=== PATIENT | female | born 1985 | race Caucasian/White ===

== ENCOUNTER 2021-09-27 15:09 | Emergency (ER) | payer OTHER, MEDICAID ==
[2021-09-27] MEDS ORDERED: Acetaminophen 500 MG Tab PO ONE (16:46)
[2021-09-27] MEDS ORDERED: Take Home: Acetaminophen/HYDROcodone 325-5 MG, 5 Tab Pack PO ONE (18:40)
[2021-09-27] MEDS ORDERED: Diphtheria,Pertussis(Acell),Tetanus Vaccine 0.5 ML Syringe IM ONE (18:53)
[2021-09-27] MEDS ORDERED: Take Home: traMADol 50 MG, 4 Tab Pack PO ONE (18:55)
== END 2021-09-27 19:20 | disposition home or self-care (01) ==
LOC: VM.ED 15:09
DX: S06.0X9A Concussion with loss of consciousness of unspecified duration, initial encounter (principal); S22.42XA Multiple fractures of ribs, left side, initial encounter for closed fracture; I10 Essential (primary) hypertension; E66.9 Obesity, unspecified; Z68.30 Body mass index [BMI] 30.0-30.9, adult; Z90.49 Acquired absence of other specified parts of digestive tract; Z79.899 Other long term (current) drug therapy; Z88.5 Allergy status to narcotic agent; Z88.8 Allergy status to other drugs, medicaments and biological substances; Z23 Encounter for immunization; Z91.030 Bee allergy status; V49.40XA Driver injured in collision with unspecified motor vehicles in traffic accident, initial encounter; Y92.410 Unspecified street and highway as the place of occurrence of the external cause
CPT/HCPCS: 70450; 71101-LT; 72125; 72170; 90471; 90715; 99284; 99284-25; A9270-GY